=== PATIENT | male | born 1990 | race Caucasian/White ===

== ENCOUNTER 2017-04-29 16:00 | Emergency (ER) | payer SELFPAY ==
[2017-04-29 16:17] VITALS: BP 148/95; PULSE 77; TEMP 99.7; BMI 24.9
[2017-04-29] MEDS ORDERED: PENICILLIN V POTASSIUM 500 MG TABLET PO ONE (16:58)
--- NOTE | 2017-04-29 16:58 | PDOC ---
History of Present Illness - General Chief Complaint: Toothache Stated Complaint: PAIN Time Seen by Provider: 04/29/17 16:26 History Source: Patient Exam Limitations: No Limitations - History of Present Illness Initial Comments: 04/29/17 17:07 27-year-old male presents to the emergency department complaining of a toothache since yesterday. Pain is described as 5/10 dull nonradiating intermittent discomfort. The pain is exacerbated with cold fluids and alleviated minimally with Motrin. Patient denies any sore throat, difficulty swallowing, difficulty eating. Patient denies any sensitivity when chewing or biting. Patient denies fever, jaw pain, neck pain, foul odor. Past History - Past Medical History Allergies/Adverse Reactions: Allergies Allergy/AdvReac Type Severity Reaction Status Date / Time No Known Allergies Allergy Verified 04/29/17 16:16 Home Medications: Ambulatory Orders Amoxicillin - [Amoxicillin 500mg Capsule -] 500 mg PO ASDIR 04/29/17 Penicillin V Potassium [Pen Vee K -] 500 mg PO TID #21 tablet 04/29/17 Other medical history: DENIES. - Suicide/Smoking/Psychosocial Hx Smoking History: Never smoked Hx Alcohol Use: No Drug/Substance Use Hx: No Substance Use Type: None Review of Systems - Review of Systems Able to Perform ROS?: Yes Comments:: 04/29/17 17:09 CONSTITUTIONAL: Absent: fever, chills, diaphoresis, generalized weakness, malaise, loss of appetite HEENT: Absent: rhinorrhea, nasal congestion, throat pain, throat swelling, difficulty swallowing, mouth swelling, ear pain, eye pain, visual Changes Left lower wisdom tooth pain Is the patient limited Dutch proficient: No *Physical Exam - Vital Signs Last Vital Signs Temp Pulse Resp BP Pulse Ox 99.7 F H 77 18 148/95 100 04/29/17 16:15 04/29/17 16:15 04/29/17 16:15 04/29/17 16:15 04/29/17 16:15 - Physical Exam Comments: 04/29/17 17:10 GENERAL: Well developed, well nourished. Awake and alert. No acute distress. HEENT: Normocephalic, atraumatic. PERRLA, EOMI. No conjunctival pallor. Sclera are non- icteric. Moist mucous membranes. Oropharynx is clear. NECK: Supple. Full ROM. No JVD. Carotid pulses 2+ and symmetric, without bruits. No thyromegaly. No lymphadenopathy. CARDIOVASCULAR: Regular rate and rhythm. No murmurs, rubs, or gallops. Distal pulses are 2+ and symmetric. SKIN: Warm and dry. Normal capillary refill. No rashes. No jaundice. Pain to the left lower wisdom tooth on percussion Neg swelling to cheek/neck *DC/Admit/Observation/Transfer Diagnosis at time of Disposition: Toothache - Discharge Dispostion Disposition: HOME Condition at time of disposition: Stable Admit: No - Prescriptions Prescriptions: Penicillin V Potassium [Pen Vee K -] 500 mg PO TID #21 tablet - Patient Instructions Printed Discharge Instructions: DI for Tooth Decay, DI for Impacted Tooth, DI for Dental Pain Additional Instructions: Call [facility] [phone] Take tylenol or motrin as needed for pain Return to the ER for severe/persistent/worsening symptoms
== END 2017-04-29 17:21 | disposition home or self-care (01) ==
LOC: JERFT 16:00
DX: K08.89 Other specified disorders of teeth and supporting structures (principal)
CPT/HCPCS: 99281-25